=== PATIENT | female | born 1990 | race Native Hawaiian/Other Pacific Islander ===

== ENCOUNTER → 2016-07-27 | Outpatient (CLI) | payer OTHER ==
--- NOTE | 2016-07-30 09:48 | POLYSOMNOGRAPH REPORT ---
CLINICAL DATA: A 25-year-old female with BMI of 21.[address] Freda Do with history of insomnia, delayed sleep onset, snoring, and witnessed apnea. On the evening of 07/28/2016, a home sleep apnea test was performed using a [employer] type 3 monitor. RECORDING RESULTS: Total recording time was 10 hours. The patient's monitoring time and estimated sleep time was 5.5 hours. RESPIRATORY DATA: There was no evidence of clinically significant sleep apnea seen. The ANGIE was 1.3. There were 4 obstructive apneic episodes and 3 hypopneic episodes recorded. The longest respiratory event was 24 seconds. OXIMETRY DATA: No hypoxemia was seen. Oxygen terry was 91%. Mean saturation was 96%. HEART RATE DATA: Heart rates ranged from 49-60 beats per minute. SNORING DATA: Snoring was recorded intermittently throughout the night. IMPRESSION: No evidence of clinically significant sleep apnea/hypopnea or nocturnal hypoxemia was seen on this home sleep apnea test. RECOMMENDATIONS: The patient should continue to practice good sleep hygiene. JOHNATHAN
== END | disposition home or self-care (01) ==
LOC: C.NEUR 09:37
PROVIDERS: ATTEND Internal Medicine
DX: G47.00 Insomnia, unspecified (principal); R06.83 Snoring